=== PATIENT | female | born 1995 | race Caucasian/White ===

== ENCOUNTER 2023-10-18 10:27 | Emergency (ER) | payer OTHER ==
[~2023-10-18] VITALS: Ht 162.6 cm; Wt 89.8 kg
[2023-10-18 11:05] VITALS: BP 109/69; PULSE 125; RESP 22; TEMP 99.4; O2SAT 98
[2023-10-18] MEDS ORDERED: BROM118S70 PO (12:13)
[2023-10-18] MEDS ORDERED: ONDA-188 SL (12:13)
[2023-10-18] MEDS ORDERED: IBUP-2213 PO (12:13)
== END 2023-10-18 12:30 | disposition home or self-care (01) ==
LOC: MED 10:27
DX: J06.9 Acute upper respiratory infection, unspecified (principal); Z79.899 Other long term (current) drug therapy
CPT/HCPCS: 99282